=== PATIENT | male | born 1960 | race Caucasian/White ===

== ENCOUNTER 2020-03-08 19:20 | Emergency (ER) | payer MEDICAID, SELFPAY ==
[2020-03-08 19:37] VITALS: BP 114/86; PULSE 140; RESP 20; TEMP 37.7; O2SAT 96; BMI 25.1
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
--- NOTE | 2020-03-08 19:58 | XR_ITS ---
PROCEDURE: XR CHEST 2V CLINICAL HISTORY: FEVER Cough and fever, COPD COMPARISON: CT WO CT CHEST WITHOUT CONTRAST from 09/05/2012 FINDINGS: The cardiomediastinal silhouette and pulmonary vascularity are within normal limits. Changes of COPD. There are scattered areas of increased parenchymal density in the right upper lobe laterally and left lower lung zone adjacent to the heart. These may represent areas of pneumonia or scarring or developing nodules. Chest CT may provide further evaluation. There are biapical blebs No acute bony abnormalities. IMPRESSION: COPD. Parenchymal opacity right upper and left lower lobe which could be due to pneumonia, scarring, or neoplasm. Consider chest CT for further evaluation. Dictated by: Xavier Yo MD 03/09/2020 05:58 Xavier Yo MD in [place] 03/09/2020 05:58
[2020-03-08 20:00] LABS: UTC Influenza A Antigen Negative (Negative); UTC Influenza B Antigen Negative (Negative); UTC Strep Screen (Rapid) Negative (Negative)
[2020-03-08 20:03] VITALS: PULSE 110
[2020-03-08 20:39] VITALS: BP 114/86; PULSE 110; RESP 20; TEMP 37.7; O2SAT 96
== END 2020-03-08 20:45 | disposition home or self-care (01) ==
PROVIDERS: Emergency Provider Nurse Practitioner Family; PCP Nurse Practitioner Family
DX: J01.90 Acute sinusitis, unspecified (principal); Z20.828 Contact with and (suspected) exposure to other viral communicable diseases; J44.9 Chronic obstructive pulmonary disease, unspecified
CPT/HCPCS: 71046; 87804; 87880; 96372; 99202; U0003